=== PATIENT | male | born 1975 | race Caucasian/White ===

== ENCOUNTER 2017-12-17 16:54 | Day surgery (SDC) | payer BC ==
[2017-12-17] VITALS (8 sets, daily range): BP systolic 98–128; BP diastolic 49–74; PULSE 54–93; TEMP 97.3–97.8
[~2017-12-17] VITALS: Ht 182.9 cm; Wt 80.9 kg
[~2017-12-17 16:54] MED LIST: NO HOME MEDICATIONS
[2017-12-17] MEDS ORDERED: MULTI VITAMINS1 TAB PO (17:27)
[2017-12-17] MEDS ORDERED: ALEVE 220MG220 MG PO (17:28)
[2017-12-17] MEDS ORDERED: BACTRIM DS 8001 TAB PO (17:31)
[2017-12-17] MEDS ORDERED: CEPHALEXIN500 M1 PO (17:31)
[2017-12-18 00:05] VITALS: BP 99/53; PULSE 49
[2017-12-18 04:01] VITALS: BP 113/51; PULSE 54; TEMP 98.6
[2017-12-18] MEDS ORDERED: NORCO 325 MG-51 TAB PO (06:56)
[2017-12-18 08:22] VITALS: BP 112/55; PULSE 57; TEMP 97.8
== END 2017-12-18 10:27 | disposition home or self-care (01) ==
LOC: SURG 16:54 → SDCO 16:54
DX: M71.162 Other infective bursitis, left knee (principal); L03.116 Cellulitis of left lower limb; M19.90 Unspecified osteoarthritis, unspecified site; Z88.0 Allergy status to penicillin
CPT/HCPCS: OP; J1100; J1885; J2405; J2704; J3010; J3370; J7030; J7050

== ENCOUNTER → 2021-02-26 | Outpatient (CLI) | payer BC ==
[~2021-02-26] MED LIST changes: +ALEVE 220MG220 MG PO; +BACTRIM DS 8001 TAB PO; +CEPHALEXIN500 M1 PO; +MULTI VITAMINS1 TAB PO; +NORCO 325 MG-51 TAB PO
== END ==
LOC: COL.RAD 10:43
DX: G45.0 Vertebro-basilar artery syndrome (principal)
CPT/HCPCS: Q9967

== ENCOUNTER 2021-04-12 09:20 | Outpatient (CLI) | payer BC ==
[~2021-04-12] VITALS: Ht 182.9 cm; Wt 81.4 kg
[2021-04-12] VITALS (8 sets, daily range): BP systolic 117–130; BP diastolic 59–73; PULSE 47–62; TEMP 98.2
[2021-04-12 11:38] LABS: CSF APPEARANCE CLEAR; CSF COLOR COLORLESS; CSF RBC 8 /mm3 (0-0)
[2021-04-12 11:49] LABS: CSF MONONUCLEAR 100 % (70-100); CSF POLYMORPHONUCLEAR 0 % (0-6)
[2021-04-12 12:16] LABS: GLUCOSE,CSF 63 mg/dL (40-70)
--- NOTE | 2021-04-12 12:54 | NUR ---
Discharge instructions given to pt.Pt verbalizes understanding.
--- NOTE | 2021-04-12 13:08 | NUR ---
Pt escorted out by this nurse.
[2021-04-16 14:36] LABS: ALBUMIN CSF 37.8 mg/dL (<=27.0); ALBUMUN SERUM 4500 mg/dL (())
[2021-04-16 15:30] LABS: CSF,IGG 3.8 mg/dL (<=8.1)
[2021-04-16 15:39] LABS: CSF OLIG BD INTERPRETATION 0 bands (<2); CSF SYNTHESIS RATE 0.78 mg/24 h (<=12); IGG,SERUM 911 mg/dL (()); SE OLIGOCLONAL BANDING 0 bands (())
== END 2021-04-12 13:09 ==
LOC: COL.RAD 09:20
PROVIDERS: Psychiatry & Neurology Neurology
DX: G37.9 Demyelinating disease of central nervous system, unspecified (principal)